=== PATIENT | male | born 1960 | race African-American/Black ===

== ENCOUNTER → 2022-02-07 | Outpatient (CLI) | payer OTHER ==
[~2022-02-07] MED LIST: AMIO200T65 PO; ASP81CT PO; ASPI-1238 PO; ASPI81TA57 PO; BENZ100C18 PO; CARV3.122 PO; CARV6.252 PO; DIGO250T PO; DIGO250T96 PO; ENLP2.5T PO; FURO80TA PO; FURO80TA3 PO; KCL10CCR PO; MAGN400C PO; MGX400T PO; MTP25TSR PO; POTA-51 PO; POTA10CA43 PO; RAMI5CAP PO; RIVA15TA PO; RMP2.5C PO; Rivaroxaban PO; SPIR25TA5 PO; TELM40TA6 PO; WARF-48 PO
== END ==
LOC: CARD 10:54
PROVIDERS: ATTEND Nurse Practitioner Family
DX: I34.0 Nonrheumatic mitral (valve) insufficiency (principal); I42.0 Dilated cardiomyopathy; I51.7 Cardiomegaly
CPT/HCPCS: 93306